=== PATIENT | female | born 1990 | race Caucasian/White ===

== ENCOUNTER 2025-03-31 10:19 | Outpatient (OUT) | payer BC, SELFPAY ==
[2025-03-31 10:56] LABS: Hematocrit 39.6 % (36.0-48.0); Hemoglobin 13.4 g/dL (12.0-16.0); Immature Granulocytes Abs Auto 0.01 10^3/uL (0.00-0.03); Immature Granulocytes Pct Auto 0.1 % (0.0-0.5); Lymphocytes Absolute Auto 2.4 10^3/uL (1.2-3.8); Mean Corpuscular HGB Conc 33.8 g/dL (29.9-35.2); Mean Corpuscular Hemoglobin 30.7 pg (26.7-34.0); Mean Corpuscular Volume 90.6 fL (81.0-99.0); Platelet Count 309 10^3/uL (150-450); Red Blood Count 4.37 10^6/uL (4.20-5.40); White Blood Count 6.9 10^3/uL (4.0-11.0)
[2025-03-31 11:07] LABS: INR 1.15; Prothrombin Time 12.0 sec (9.0-11.6)
[2025-03-31 11:16] LABS: Thyroid Stimulating Hormone 1.649 uIU/mL (0.358-3.740)
== END 2025-03-31 10:20 | disposition home or self-care (01) ==
LOC: LAB 10:25
PROVIDERS: Visit Provider Physician Assistant
DX: N92.0 Excessive and frequent menstruation with regular cycle (principal)
CPT/HCPCS: 36415; 83036; 84439; 84443; 84702; 85025; 85610

== ENCOUNTER 2025-04-22 14:44 | Outpatient (RCR) | payer BC, SELFPAY ==
--- OUTSIDE RECORDS SUMMARY | 2020-07-16 04:00 | XMS_ITS | Continuity of Care Document ---
Author Organization [facility] Address [address] [place] [address] Phone Care Team Providers Care Piggyback Clerk Name Role Phone Alejo Bowers Unavailable Unavailable Procedures Procedure Date Moderna COVID-19 Vaccine Moderna COVID Vaccine Admin Dose 2 Moderna COVID Vaccine Admin Dose 1 Moderna COVID-19 Vaccine TB INTRADERMAL TEST HEP B VACCINE, ADULT, IM PREVENTIVE COUNSELING, INDIV IMMUNIZATION ADMIN HEP B VACCINE, ADULT, IM HEP B VACCINE, ADULT, IM PREVENTIVE COUNSELING, INDIV IMMUNIZATION ADMIN HEP B VACCINE, ADULT, IM TB INTRADERMAL TEST TB INTRADERMAL TEST TB INTRADERMAL TEST HEP B VACCINE, ADULT, IM PREVENTIVE COUNSELING, INDIV TB INTRADERMAL TEST IMMUNIZATION ADMIN HEP B VACCINE, ADULT, IM Advance Directives Directive Yes / No Effective Date File Name No Information Encounters Encounter Description Practice Location Reason(s) For Visit Diagnoses Date Provider Providers Copied on Encounter [facility], [address], [place], [id number], [place] tel:[phone] COVID ECHD No Information Dameon Elise. [address], [place], [id number] , [place]. tel: [phone] [facility], [address] [facility] [place], [place], [id number], [place] tel:[phone] COVSTEPHANIE ECHD No Information 1 Visci DO Alejo. [address] [facility] [place], [place], [id number] , [place]. tel: [phone] [facility], [address] [facility] [place], [place], [id number], [place] tel:[phone] [facility] Screening examination for pulmonary tuberculosis 5 Visci DO Alejo. [address], [place], [id number] , [place]. tel: [phone] [facility], [address] [facility] [place], [place], [id number], [place] tel:[phone] [facility] Screening examination for pulmonary tuberculosis 5 Visci DO Alejo. [address], [place], [id number] , [place]. tel: [phone] PREVENTIVE COUNSELING, [facility], [address], [place], [id number], [place] tel:[phone] [facility] No Information 4 Visci DO Alejo. [address], [place], [id number] , [place]. tel: [phone] PREVENTIVE COUNSELING, [facility], [address], [place], [id number], [place] tel:[phone] [facility] No Information 4 Visci DO Alejo. [address], [place], [id number] , [place]. tel: [phone] [facility], [address] [facility] [place], [place], [address], [place] tel:[phone] [facility] No Information 4 Visci DO Aljeo. [address] [place], [place], [address] , [place]. tel: [phone] PREVENTIVE COUNSELING, INDIV [facility], [address], [place], [address], [place] tel:[phone] [facility] Screening examination for pulmonary tuberculosisNeed for prophylactic vaccination and inoculation against viralhepatitis 4 Dameon Elise. [address], [place], [id number] , [place]. [phone] Family History Family Member Type Diagnosis Age At Onset No Information Immunizations Vaccine Date Status Comments Moderna COVID administered Source: New Im munization Record Moderna COVID administered Source: New Im munization Record Hep B (adult) administered Note: VIS give n. ; Source: New Immunization Record Hep B (adult) administered Source: New Im munization Record Hep B (adult) administered Note: abner gvie n. ; Source: New Immunization Record Payers Payer name Insurance type Covered republican ID Authoriza tijeannette(s) [employer] Claims CI [id number] [employer] Claims CI [id number] [employer] Claims CI [id number] Social History Type Description Quantity Date Captured Comments Alcohol Use Details Unknown Caffeine Use Details Unknown Tobacco Use Status No Information Smoking Status No Information Sex Female Sexual Orientation Straight or heterosexual Gender Identity Female Chief Complaint And Reason For Visit No Information Reason For Referral Reason For Referral No Information History Of Present Illness Encounter Date Complaint History Of Prese nt Illness No Information Functional Status Date Functional Assessmen t No Information Instructions Date Instruction Additional Infor mation No Information Assessments Type Assessment Date No Information Patient Care Teams Name Effective Dates (start - stop) Status Members No Information
--- OUTSIDE RECORDS SUMMARY | 2025-04-22 11:20 | XMS_ITS | Encounter Summary ---
Author Organization [facility] Address [address] [facility] [place] [address] Care Team Providers Care Corporate Lawyer Name Role Phone Brennen Claros DO Primary Care Provider [phone] Reason for Visit * ReasonCommentsFollow-up Encounter Details DateTypeDepartmentCare Team (Latest Contact Info)Lzkfnzundyl83/11/2025 11:20 AM ESTOffice Visit [facility] [address] [place] [address] Len Olivo DO [address] [place] [id number] Encounter to discuss test results; Elevated serum hCG; Abnormal uterine bleeding (AUB) Social History Tobacco UseTypesPacks/DayYears UsedDateSmoking Tobacco: Never Assessed CommentsUnknownSex and Gender InformationValueDate RecordedSex Assigned at Not on fileLegal HueBkmdzz84/15/2023 6:47 PM EDTGender IdentityNot on fileSexual OrientationNot on filedocumented as of this encounter Last Filed Vital Signs Vital SignReadingTime TakenCommentsBlood Xcapywgb998/6004/22/2025 11:25 AM EST Pulse--Temperature--Respiratory Rate--Oxygen Saturation--Inhaled Oxygen Concentration--Ifaxig813 kg (239 lb)04/22/2025 11:25 AM ESTHeight--Body Mass Index33.3310 9:14 AM EDTdocumented in this encounter Plan of Treatment NameTypePriorityAssociated DiagnosesOrder SchedulehCG, quantitative, LabRoutine Elevated serum hCG 4 Occurrences starting 04/22/2025 until 04/22/2026documented as of this encounter Visit Diagnoses Diagnosis Encounter to discuss test results Other specified counseling Elevated serum hCG Abnormal uterine bleeding (AUB) documented in this encounter Care Teams Team MemberRelationshipSpecialtyStart DateEnd Date Brennen Claros DO [address] [facility] [address] [place] [address] PCP - GeneralFamily Medicine10/18/22documented as of this encounter
--- OUTSIDE RECORDS SUMMARY | 2025-04-22 14:48 | XMS_ITS | Clinical Summary ---
Author Organization [facility] Address [address] [facility] [place] [address] Care Team Providers Care Business System Consultant Name Role Phone Brennen Claros DO Primary Care Provider [phone] Allergies Active AllergyReactionsCriticalityNoted DateCommentsBee JpoludBxcutka37/20/2025 Medications MedicationSigDispense QuantityRefillsLast FilledStart DateEnd DateStatus norgestimate-ethinyl estradiol (Sprintec 28) 0.25-35 MG-MCG tablet Indications:Menorrhagia with regular cycleTake 1 tablet by mouth Daily Take 1 tablet by mouth daily 28 tablet 515Active hydroCHLOROthiazide (HYDRODiuril) 12.5 MG tablet 1 (one) time each day at the same timeActive levothyroxine (Synthroid, Levoxyl) 125 MCG tablet Take 250 mcg by mouth Daily5Active levothyroxine (Synthroid, Levoxyl) 25 MCG tablet Take by mouth in the morning. Take before meals.Active Encounters DateTypeDepartmentCare GcyfOprusvuiqcj78/11/2025 11:20 AM ESTOffice [place] [address] Len Olivo DO Encounter to discuss test results; Elevated serum hCG; Abnormal uterine bleeding (AUB)04/22/2025amboo [place] [address] Len Olivo DO 04/03/2025 8:00 AM EDTAncillary [place] [address] Menorrhagia with regular cycle03/31/2025 9:00 AM EDTOffice Visit [facility] [address] [place] [address] Marti Huizar PA Menorrhagia with regular cycle (Primary Dx); Rljavbdumscn30/20/2025linisync Result Encounter [facility]OM[facility] External Department Unsolicited Marti Huizar PA 03/31/2025amboo flowsheet [facility] [address] [facility] [place] [address] Marti Huizar PA from Last 3 Months Social History Tobacco UseTypesPacks/DayYears UsedDateSmoking Tobacco: Never Assessed CommentsUnknownSex and Gender InformationValueDate RecordedSex Assigned at Not on fileLegal VevSsragl97/15/2023 6:47 PM EDTGender IdentityNot on fileSexual OrientationNot on file Last Filed Vital Signs Vital SignReadingTime TakenCommentsBlood Psknjxcn188/6011 11:25 AM EST Pulse--Temperature--Respiratory Rate--Oxygen Saturation--Inhaled Oxygen Concentration--Heaxfo603 kg (239 lb)04/22/2025 11:25 AM GGTQvqrzz503.3 cm (5' 11 )03/31/2025 9:14 AM EDTBody Mass Index33.331 9:14 AM EDT Plan of Treatment Health MaintenanceDue DateLast DoneCommentsPap Smear2009Cervical Cancer Cmmophwif59/02/2019HPV/Bsxzog9406/13/2018COVID-19 Vaccine ( season) /09/2020, 06/18/2020Influenza Vaccine (#1) Pneumococcal Vaccine: Pediatrics (0 to 5 Years) and At-Risk Patients (6 to 64 Years)Aged OutNo longer eligible based on patient's age to complete this topic Procedures Procedure NamePriorityDate/TimeAssociated DiagnosisCommentsUS PELVIC COMPLETE W/ ACQfcfqwj92/23/2025 8:51 AM EDT Menorrhagia with regular cycle ALL THYROXINE (T4) LHLVNuhtpnz50/20/2025 10:44 AM EDT SRMCOH PROTHROMBIN TIME INR W/O ZJEFByxtfve01/20/2025 10:44 AM EDT TBH PREG QUANT XZZCitlbrk14/20/2025 10:44 AM EDT ALL THYROID STIM WEDQBPBItrmezf11/20/2025 10:44 AM EDT MLR HEMOGLOBIN Z1NFixhsgw68/20/2025 10:44 AM EDT ALL CBC WITH AUTO DYVYRpsuune42/20/2025 10:44 AM EDT from Last 3 Months Results * US Pelvis w/ TV (04/03/2025 8:51 AM EDT)Anatomical RegionLateralityModality PelvisUltrasoundSpecimen (Source)Anatomical Location / LateralityCollection Method / VolumeCollection TimeReceived Time04/03/2025 3:09 PM EDT Impressions 04/04/2025 7:27 AM EDT Normal pelvic ultrasound appearance. TRANSCRIBED BY: ? ELECTRONICALLY SIGNED BY: Aldair Monahan MD Narrative 04/04/2025 7:27 AM EDT FINDINGS: Uterus ? 8.5 ??x 5.0 x 4.6 cm Endometrium ??6 mm Right Ovary ?3.1 x 3.7 x 1.8cm Left Ovary ?2.9 x 2.9 x 1.7 cm The uterus is normal in size and orientation. ??No worrisome mass lesions are seen. ??Endometrium appears unremarkable. ??No fluid is seen within the cul-de-sac. ??Both ovaries appear normal for thisage. Procedure Note Aldair Monahan MD - 04/04/2025 FINDINGS: Uterus 8.5 x 5.0 x 4.6 cm Endometrium 6 mm Right Ovary 3.1 x 3.7 x 1.8cm Left Ovary 2.9 x 2.9 x 1.7 cm The uterus is normal in size and orientation. No worrisome mass lesionsare seen. Endometrium appears unremarkable. No fluid is seen within gqbqtg-fu-zhr. Both ovaries appear normal for this age. IMPRESSION: Normal pelvic ultrasound appearance. TRANSCRIBED BY: ELECTRONICALLY SIGNED BY: Aldair Monahan MD Authorizing ProviderResult TypeResult StatusAmy Waterford [facility] US PROCEDURESFinal Result * TBH PREG QUANT HCG (03/31/2025 10:44 AM EDT)ComponentValueRef RangeTest Method Analysis TimePerformed AtPathologist SignatureHCG UQJSJLGZDKVW88bDC/mLTBH Comment: 5-50 ? 0.2-1 WEEK 50-500 ? 1-2 WEEKS 100-5,000 ?2-3 WEEKS 500-10,000 ? 3-4 WEEKS 1,000-50,000 ?? 4-5 WEEKS 10,000-100,000 5-6 WEEKS 15,000-200,000 6-8 WEEKS 10,000-100,000 2-3 MONTHS Specimen (Source)Anatomical Location / LateralityCollection Method / Volume Collection TimeReceived Time03/31/2025 10:44 AM EDT1 10:45 AM EDT Narrative [facility] - 03/31/2025 11:17 AM EDT Authorizing ProviderResult TypeResult StatusAmy Bhupendra PACLINISYNCFinal Result Performing OrganizationAddressCity/State/ZIP CodePhone Number [facility] * (ABNORMAL) SRMCOH PROTHROMBIN TIME INR W/O COUM (03/31/2025 10:44 AM EDT) ComponentValueRef RangeTest MethodAnalysis TimePerformed AtPathologist SignaturePROTHROMBIN TIME12.0(H)9.0 - 11.6 secTBHTBH INR1.15TBHComment: DESIRED INR: 2.0-3.0 CONDITIONS NOT LISTED BELOW 2.5-3.5 FOR PROSTHETIC HEART VALVE REPLACEMENT 2.5-3.5 RECURRENT THROMBOSIS Specimen (Source)Anatomical Location / LateralityCollection Method / Volume Collection TimeReceived Time03/31/2025 10:44 AM EDT1 10:45 AM EDT Narrative [facility] - 03/31/2025 11:33 AM EDT Authorizing ProviderResult TypeResult StatusAmy Bhupendra AGOSTOINISYNCFinal Result Performing OrganizationAddressCity/State/ZIP CodePhone Number [facility] * MLR HEMOGLOBIN A1C (03/31/2025 10:44 AM EDT)ComponentValueRef RangeTest Method Analysis TimePerformed AtPathologist SignatureGLYCOHEMOGLOBIN A1C4.84.5 - 6.2 %TBHComment: ADA RECOMMENDED LIMIT 4.0 - 6.0 ADA THERAPEUTIC TARGET < 7.0 ACTION SUGGESTED > 7.0 ESTIMATED AVERAGE MIAZOSH96cp/dLTBHSpecimen (Source)Anatomical Location / LateralityCollection Method / VolumeCollection TimeReceived Time03/31/2025 10:44 AM EDT1 10:45 AM EDT Narrative [facility] - 03/31/2025 11:09 AM EDT Authorizing ProviderResult TypeResult StatusAmy Bhupendra FISCHERYNCFinal Result Performing OrganizationAddBelmont Behavioral Hospitalty/State/ZIP CodePhone Number [facility] * ALL THYROXINE (T4) FREE (03/31/2025 10:44 AM EDT)ComponentValueRef RangeTest MethodAnalysis TimePerformed AtPathologist SignatureFREE T41.110.76 - 1.46 ng/dLTBHSpecimen (Source)Anatomical Location / LateralityCollection Method / VolumeCollection TimeReceived Time03/31/2025 10:44 AM EDT1 10:45 AM EDT Narrative CLINISYNC - 03/31/2025 11:44 AM EDT Authorizing ProviderResult TypeResult StatusAmy Bhupendra AGOSTOINISYNCFinal Result Performing OrganizationAddP[facility]/State/ZIP CodePhone Number [facility] * ALL THYROID STIM HORMONE (03/31/2025 10:44 AM EDT)ComponentValueRef RangeTest MethodAnalysis TimePerformed AtPathologist SignatureTHYROID STIMULATING HORMONE1.6490.358 - 3.740 uIU/mLTBHSpecimen (Source)Anatomical Location / LateralityCollection Method / VolumeCollection TimeReceived Time03/31/2025 10:44 AM EDT1 10:45 AM EDT Narrative [facility] - 03/31/2025 11:17 AM EDT Authorizing ProviderResult TypeResult StatusAmy Waterford PACLINISYNCFinal Result Performing OrganizationAddressCity/State/ZIP CodePhone Number [facility] * ALL CBC WITH AUTO DIFF (03/31/2025 10:44 AM EDT)ComponentValueRef RangeTest MethodAnalysis TimePerformed AtPathologist SignatureTBH WBC6.94.0 - 11.0 10 3/uLTBHTBH RBC4.374.20 - 5.40 10 6/uLTBHTBH HGB13.412.0 - 16.0 g/dLTBHTBH HCT 39.636.0 - 48.0 %TBHTBH MCV90.681.0 - 99.0 fLTBHTBH MCH30.726.7 - 34.0 pgTBH TBH MCHC33.829.9 - 35.2 g/dLTBHTBH RDW13.211.0 - 15.0 %TBHTBH AHV391428 - 450 10 3/uLTBHTBH MPV10.69.5 - 13.5 fLTBHNEUTROPHILS PERCENT AUTO54.743.0 - 75.0 % TBHLYMPHOCYTES PERCENT AUTO34.720.5 - 60.0 %TBHMONOCYTES PERCENT AUTO6.61.7 - 12.0 %TBHTBH EO %3.50.9 - 7.0 %TBHBASOPHILS PERCENT AUTO0.40.2 - 2.0 %TBH IMMATURE GRANULOCYTES PCT AUTO0.10.0 - 0.5 %TBHNEUTROPHILS ABSOLUTE AUTO3.81.4 - 6.5 10 3/uLTBHLYMPHOCYTES ABSOLUTE AUTO2.41.2 - 3.8 10 3/uLTBHMONOCYTES ABSOLUTE AUTO0.50.3 - 0.8 10 3/uLTBHTBH EO #0.20.0 - 0.7 10 3/uLTBHBASOPHILS ABSOLUTE AUTO0.00.0 - 0.1 10 3/uLTBHIMMATURE GRANULOCYTES ABS AUTO0.010.00 - 0.03 10 3/uLTBHSpecimen (Source)Anatomical Location / LateralityCollection Method / VolumeCollection TimeReceived Time03/31/2025 10:44 AM EDT1 10:45 AM EDT Narrative [facility] - 03/31/2025 10:57 AM EDT Authorizing ProviderResult TypeResult StatusAmy Waterford PACLINISYNCFinal Result Performing OrganizationAddressCity/State/ZIP CodePhone Number [facility] from Last 3 Months Insurance Care Teams Team MemberRelationshipSpecialtyStart DateEnd Date Brennen Claros DO [address] [place] [address] PCP - GeneralFamily Medicine10/18/22
--- OUTSIDE RECORDS SUMMARY | 2025-04-22 14:48 | XMS_ITS | Clinical Summary ---
Author Organization [facility] Address [id number] [address] [place] [address] Care Team Providers Care Senior Data Warehouse Developer Name Role Phone No Pcp, No Pcp Primary Care Provider Unavailabl e Allergies No known active allergies Medications No known medications Active Problems ProblemNoted DateDiagnosed DatePreterm labor04/19/2018 Immunizations ImmunizationAdministration DatesNext DueTd (adult), 5 Lf tetanus toxoid, preservative free, olsvpneh07/03/1227Zukq13/10/2018 Family History Medical HistoryRelationNameCommentsDepressionFatherRelationNameStatusComments Father Social History Tobacco UseTypesPacks/DayYears UsedDateSmoking Tobacco: NeverChildcareAnswerDate OtdyxxuuZmhyszcjhXtfnbnr78/12/2019EmploymentAnswerDate RecordedEmploymentUnknown 11/21/2018Purpose - LifeAnswerDate RecordedPurpose and direction in lifeUnknown 1CommentsNoSex and Gender InformationValueDate RecordedSex Assigned at BirthNot on fileLegal GunOgnrzv34/17/2016 1:08 PM EDTGender Identity Not on fileSexual OrientationNot on file Last Filed Vital Signs Vital SignReadingTime TakenCommentsBlood Comdgzyg305/ 2:00 PM EST Jcxld255604/21/2018 2:00 PM TKPCozsizldctf23.7 ??C (98.1 ??F)04/21/2018 2:00 PM ESTRespiratory Lawp487406/21/2017 2:00 PM ESTOxygen Jysvariryw759%06/14/2016 2:19 PM ESTInhaled Oxygen Concentration--Rhwadl180.9 kg (240 lb)04/19/2018 6:36 PM TOZDhgytf307.3 cm (5' 11 )04/19/2018 6:36 PM ESTBody Mass Index33.4704/19/2018 6:36 PM EST Plan of Treatment Health MaintenanceDue DateLast DoneCommentsDepression Gdpyukozr37/02/2001Tobacco Zuyhtoumj84/02/2001Adult BMI Fvvygwrzm09/02/2007Pap Smear2009Influenza Gcjiadb4002/10/2025DTaP,Tdap and Td Vaccines (3 - Td or Tdap), 06/14/2016 Medical Devices Not on file Insurance Advance Directives * Full Code (Latest Code Status on File) Date ActivatedDate JzljrbdbxxcRocadtxu65/8/2018 7:38 PM04/21/2018 7:45 PM Care Teams Team MemberRelationshipSpecialtyStart DateEnd Date No Pcp, [place] [address] PCP - [facility]Comp[facility] Healthcarely Medicine06/14/16
--- OUTSIDE RECORDS SUMMARY | 2025-04-22 14:48 | XMS_ITS | Encounter Summary ---
Author Organization [facility] Address [address] [facility] [place] [address] Care Team Providers Care Christian Science Nurse Name Role Phone Brennen Claros DO Primary Care Provider [phone] Encounter Details DateTypeDepartmentCare Team (Latest Contact Info)Kvvaqskvtdt85/11/2025Bamboo flowsheet [facility] [address] [place] [id number] Len Olivo DO [address] [place], [place] [id number] Social History Tobacco UseTypesPacks/DayYears UsedDateSmoking Tobacco: Never Assessed CommentsUnknownSex and Gender InformationValueDate RecordedSex Assigned at Not on fileLegal GbxVlxxuk82/15/2023 6:47 PM EDTGender IdentityNot on fileSexual OrientationNot on filedocumented as of this encounter Plan of Treatment Not on file documented as of this encounter Visit Diagnoses Not on filedocumented in this encounter Care Teams Team MemberRelationshipSpecialtyStart DateEnd Date Brennen Claros DO [address] [facility] [place] [address] PCP - GeneralFamily Medicine10/18/22documented as of this encounter
--- OUTSIDE RECORDS SUMMARY | 2025-04-22 14:48 | XMS_ITS | Encounter Summary ---
Author Organization [facility] Address [address] [facility] [place] [address] Care Team Providers Care Harmonic Analyst Name Role Phone Brennen Claros DO Primary Care Provider [phone] Encounter Details DateTypeDepartmentCare Team (Latest Contact Info)Loeegjqgqyc19/20/2025linisync Result Encounter N[facility]S External Department Unsolicited Marti Huizar PA [address] [place] [address] [place] [address] Social History Tobacco UseTypesPacks/DayYears UsedDateSmoking Tobacco: Never Assessed CommentsUnknownSex and Gender InformationValueDate RecordedSex Assigned at Not on fileLegal LboIllvjk81/15/2023 6:47 PM EDTGender IdentityNot on fileSexual OrientationNot on filedocumented as of this encounter Plan of Treatment Not on file documented as of this encounter Procedures Procedure NamePriorityDate/TimeAssociated DiagnosisCommentsTBH PREG QUANT HCG Vkjbuil4203/31/2025 10:44 AM EDT SRMCOH PROTHROMBIN TIME INR W/O FABLZngnrmy68/20/2025 10:44 AM EDT MLR HEMOGLOBIN Q6LQfjhdhg20/20/2025 10:44 AM EDT ALL THYROXINE (T4) PQDFWszmrgf10/20/2025 10:44 AM EDT ALL THYROID STIM EBSXPQMYidewsw48/20/2025 10:44 AM EDT ALL CBC WITH AUTO UDTKCwompzh63/20/2025 10:44 AM EDT documented in this encounter Results * ALL THYROXINE (T4) FREE (03/31/2025 10:44 AM EDT)ComponentValueRef RangeTest MethodAnalysis TimePerformed AtPathologist SignatureFREE T41.110.76 - 1.46 ng/dLTBHSpecimen (Source)Anatomical Location / LateralityCollection Method / VolumeCollection TimeReceived Time03/31/2025 10:44 AM EDT1 10:45 AM EDT Narrative [facility] - 03/31/2025 11:44 AM EDT Authorizing ProviderResult TypeResult StatusAmy Bhupendra PACLINISYNCFinal Result Performing OrganizationAddressCity/State/ZIP CodePhone Number [facility] * (ABNORMAL) SRMCOH PROTHROMBIN TIME INR [...] Bhupendra PACLINISYNCFinal Result Performing OrganizationAddressCity/State/ZIP CodePhone Number [facility] * TBH PREG QUANT HCG (03/31/2025 10:44 AM EDT)ComponentValueRef RangeTest Method Analysis TimePerformed AtPathologist SignatureHCG TOIVCWSUOVJX82dDG/mLTBH Comment: 5-50 ? 0.2-1 WEEK 50-500 ? [...] Bhupendra PACLINISYNCFinal Result Performing OrganizationAddressCity/State/ZIP CodePhone Number [facility] * ALL THYROID STIM HORMONE (03/31/2025 10:44 AM EDT)ComponentValueRef RangeTest MethodAnalysis TimePerformed AtPathologist SignatureTHYROID STIMULATING HORMONE1.6490.358 - 3.740 uIU/mLTBHSpecimen (Source)Anatomical Location / LateralityCollection Method / VolumeCollection TimeReceived Time03/31/2025 10:44 AM EDT1 10:45 AM EDT Narrative CLINISYNC - 03/31/2025 11:17 AM EDT Authorizing ProviderResult TypeResult StatusAmy Bhupendra PACLINISYNCFinal Result Performing OrganizationAddCanonsburg Hospitalty/State/ZIP CodePhone Number [facility] * MLR HEMOGLOBIN A1C (03/31/2025 10:44 AM EDT)ComponentValueRef RangeTest Method Analysis TimePerformed AtPathologist SignatureGLYCOHEMOGLOBIN A1C4.84.5 - 6.2 %TBHComment: ADA RECOMMENDED LIMIT 4.0 - 6.0 ADA THERAPEUTIC TARGET < 7.0 ACTION SUGGESTED > 7.0 ESTIMATED AVERAGE YSPAWHA32ta/dLTBHSpecimen (Source)Anatomical Location / LateralityCollection Method / VolumeCollection TimeReceived Time03/31/2025 10:44 AM EDT1 10:45 AM EDT Narrative CLINISYNC - 03/31/2025 11:09 AM EDT Authorizing ProviderResult TypeResult StatusAmy Bhupendra PACLINISYNCFinal Result Performing OrganizationAddressCity/State/ZIP CodePhone Number [facility] * ALL CBC WITH AUTO DIFF (03/31/2025 10:44 AM EDT)ComponentValueRef RangeTest MethodAnalysis TimePerformed AtPathologist SignatureTBH WBC6.94.0 - 11.0 10 3/uLTBHTBH RBC4.374.20 - 5.40 10 6/uLTBHTBH HGB13.412.0 - 16.0 g/dLTBHTBH HCT 39.636.0 - 48.0 %TBHTBH MCV90.681.0 - 99.0 fLTBHTBH MCH30.726.7 - 34.0 pgTBH TBH MCHC33.829.9 - 35.2 g/dLTBHTBH RDW13.211.0 - 15.0 %TBHTBH DRO364767 - 450 10 3/uLTBHTBH MPV10.69.5 - 13.5 fLTBHNEUTROPHILS PERCENT AUTO54.743.0 - 75.0 % TBHLYMPHOCYTES PERCENT AUTO34.720.5 - 60.0 %TBHMONOCYTES PERCENT AUTO6.61.7 - 12.0 %TBHTBH EO %3.50.9 - 7.0 %TBHBASOPHILS PERCENT AUTO0.40.2 - 2.0 %TB IMMATURE GRANULOCYTES PCT AUTO0.10.0 - 0.5 %TBHNEUTROPHILS [...] 10:57 AM EDT Authorizing ProviderResult TypeResult StatusAmy Bhupendra PACLINISYNCFinal Result Performing OrganizationAddressCity/State/ZIP CodePhone Number CLINISYNC TB documented in this encounter Visit Diagnoses Not on filedocumented in this encounter Care Teams Team MemberRelationshipSpecialtyStart DateEnd Date Brennen Claros DO [address] [facility] [address] [place] [id number] PCP - GeneralFamily Medicine10/18/22documented as of this encounter
== END 2025-05-12 08:24 | disposition home or self-care (01) ==
LOC: LAB 14:44
PROVIDERS: Visit Provider Obstetrics & Gynecology
DX: Z51.81 Encounter for therapeutic drug level monitoring (principal); R79.89 Other specified abnormal findings of blood chemistry
CPT/HCPCS: 36415; 84702